=== PATIENT | male | born 1990 | race Caucasian/White ===

== ENCOUNTER 2018-06-22 22:57 | Emergency (ER) | payer OTHER ==
[2018-06-22] MEDS ORDERED: METOCLOPRAMIDE 10 MG TAB PO ONE (23:19)
[2018-06-22] MEDS ORDERED: DICYCLOMINE 10 MG CAP PO ONE (23:19)
--- NOTE | 2018-06-22 23:24 | EDPHY ---
H & P Stated Complaint: ABD tightness going into epigastric pain Time Seen by Provider: 06/22/18 23:08 HPI/ROS: HPI The patient presents with epigastric abdominal pain which is described as a tightness which radiates throughout his abdomen which has been present for the last several hours. He awoke with a sore throat this morning and therefore has had limited p.o. Intake because of this. He developed abdominal bloating later in the day as and then developed pressure which he feels in his epigastric region which radiates toward his chest. As this comes and goes and is improved with movement. It is worse when he lies down. He has had multiple similar episodes that normally improve with sleeping more Gas-X. He took Gas-X, however this did not improve his symptoms. He does not have nausea, vomiting, diarrhea, constipation. REVIEW OF SYSTEMS 10 systems were reviewed and negative with the exception of the elements mentioned in the history of present illness. PMHx: Healthy, does not take medications Soc Hx: Here with his partner PHYSICAL General Appearance: Alert, no distress Eyes: Pupils equal and round no pallor or injection ENT, Mouth: Mucous membranes moist Respiratory: There are no retractions, lungs are clear to auscultation Cardiovascular: Regular rate and rhythm Gastrointestinal: Abdomen is soft and non-tender, no masses, bowel sounds normal Neurological: A&O, moves all extremities Skin: Warm and dry, no rashes Musculoskeletal: Neck is supple non tender Extremities: symmetrical, full range of motion Psychiatric: Patient is oriented X 3, there is no agitation Source: Patient Exam Limitations: No limitations - Personal History Current Tetanus/Diphtheria Vaccine: Unsure Current Tetanus Diphtheria and Acellular Pertussis (TDAP): Unsure - Medical/Surgical History Hx Asthma: No Hx Chronic Respiratory Disease: No Hx Diabetes: No Hx Cardiac Disease: No Hx Renal Disease: No Hx Cirrhosis: No Hx Alcoholism: No Hx HIV/AIDS: No Hx Splenectomy or Spleen Trauma: No - Social History Smoking Status: Former smoker Constitutional: Initial Vital Signs Temperature (C) 36.9 C 06/22/18 22:59 Heart Rate 88 06/22/18 22:59 Respiratory Rate 16 06/22/18 22:59 Blood Pressure 147/94 H 06/22/18 22:59 O2 Sat (%) 97 06/22/18 22:59 O2 Delivery Mode Room Air Allergies/Adverse Reactions: No Known Allergies Allergy (Unverified 06/22/18 23:02) Home Medications: Medication Instructions Recorded Dicyclomine [Bentyl 20 MG (*)] 20 mg PO QID #30 tab 06/23/18 Medical Decision Making Differential Diagnosis: 28-year-old healthy male presents with abdominal bloating and epigastric tightness for the last several hours in the setting of not eating or drinking much. On exam, very well-appearing, normal vital signs, abdominal exam is benign. Differential diagnosis includes constipation, bowel obstruction, gastritis. In the emergency department, the patient was treated with Bentyl and Reglan. Patient's symptoms are improved but not completely alleviated after above treatment. He then was given a GI cocktail which made him feel much better. Repeat abdominal exam continued to demonstrate no tenderness. He will be discharged home with prescription for Bentyl. Have discussed return precautions with him. - Data Points Medications Given: Discontinued Medications Al Hydroxide/Mg Hydroxide (Maalox Susp) 30 ml PO ONCE ONE Stop: 06/23/18 00:03 Last Admin: 06/23/18 00:06 Dose: 30 ml Dicyclomine HCl (Bentyl) 20 mg PO EDNOW ONE Stop: 06/22/18 23:20 Last Admin: 06/22/18 23:25 Dose: 20 mg Hyoscyamine Sulfate (Levsin, Hyomax-Sl) 0.25 mg PO ONCE ONE Stop: 06/23/18 00:03 Last Admin: 06/23/18 00:06 Dose: 0.25 mg Metoclopramide HCl (Reglan) 10 mg PO EDNOW ONE Stop: 06/22/18 23:20 Last Admin: 06/22/18 23:25 Dose: 10 mg Departure - Departure Disposition: Home, Routine, Self-Care Clinical Impression: Dyspepsia Instructions: Indigestion (ED) Additional Instructions: Please return to the emergency department if your worse in any way. Referrals: RAMONA Guerin,. [Clinic] - As per Instructions Prescriptions: Dicyclomine [Bentyl 20 MG (*)] 20 mg PO QID #30 tab
[2018-06-23] MEDS ORDERED: MAG HYDROX/AL HYDROX/SIMETH 30 ML UDCUP PO ONE (00:02)
[2018-06-23] MEDS ORDERED: HYOSCYAMINE SULFATE 0.125 MG TAB PO ONE (00:02)
[2018-06-23 01:18] VITALS: BP 132/87
== END 2018-06-23 01:18 | disposition home or self-care (01) ==
DX: R10.13 Epigastric pain (principal); Z87.891 Personal history of nicotine dependence